=== PATIENT | male | born 1985 | race African-American/Black ===

== ENCOUNTER 2023-04-11 10:20 | Emergency (ER) | payer MEDICAID ==
[~2023-04-11] VITALS: Ht 185.4 cm; Wt 129.3 kg
[2023-04-11 10:38] VITALS: BP 126/87; PULSE 81; RESP 18; TEMP 97.8; O2SAT 98
[2023-04-11 13:30] VITALS: BP 126/87; PULSE 81; RESP 18; TEMP 97.8; O2SAT 98
== END 2023-04-11 13:30 | disposition left against medical advice (07) ==
LOC: MED 10:20
DX: R07.9 Chest pain, unspecified (principal); R42 Dizziness and giddiness; J31.2 Chronic pharyngitis; R03.0 Elevated blood-pressure reading, without diagnosis of hypertension
CPT/HCPCS: 71046; 99283

== ENCOUNTER 2023-06-27 12:44 | Emergency (ER) | payer MEDICAID ==
[~2023-06-27] VITALS: Ht 185.4 cm; Wt 122.0 kg
[2023-06-27 12:46] VITALS: BP 145/86; PULSE 82; RESP 16; TEMP 97.5; O2SAT 98
[2023-06-27 16:00] LABS: APPEARANCE,URINE CLEAR (CLEAR); BILIRUBIN,URINE NEGATIVE (NEGATIVE); BLOOD, URINE NEGATIVE (NEGATIVE); COLOR,URINE YELLOW (YELLOW); LEUKOCYTE ESTERASE ,URINE NEGATIVE (NEGATIVE); NITRITE, URINE NEGATIVE (NEGATIVE); PROTEIN,URINE NEGATIVE (NEGATIVE); UGLUCOSE NEGATIVE (NEGATIVE); UROBILINOGEN,URINE 0.2 EU/dL (0.2 - 1)
[2023-06-27] MEDS ORDERED: BENZ200C4 PO (16:20)
[2023-06-27] MEDS ORDERED: ALBU0.0912 IH (16:20)
[2023-06-27] MEDS ORDERED: BENZ-300 PO (16:20)
[2023-06-27 16:23] LABS: FLU A ANTIGEN negative (NEGATIVE); FLU B ANTIGEN NEGATIVE (NEGATIVE)
== END 2023-06-27 16:39 | disposition home or self-care (01) ==
LOC: MED 12:44
DX: J40 Bronchitis, not specified as acute or chronic (principal); J02.9 Acute pharyngitis, unspecified; R03.0 Elevated blood-pressure reading, without diagnosis of hypertension; N50.812 Left testicular pain; N43.3 Hydrocele, unspecified; Z20.822 Contact with and (suspected) exposure to COVID-19; Z79.899 Other long term (current) drug therapy
CPT/HCPCS: 71046; 76870; 81003; 86308; 87081; 87426; 87491; 87804; 99284; Q0092

== ENCOUNTER 2023-09-13 21:06 | Emergency (ER) | payer MEDICAID ==
[~2023-09-13] VITALS: Ht 185.4 cm; Wt 111.1 kg
[~2023-09-13 21:06] MED LIST: ALBU0.0912 IH; BENZ-300 PO; BENZ200C4 PO
[2023-09-13 21:53] VITALS: BP 140/90; PULSE 97; RESP 18; TEMP 97.6; O2SAT 99
[2023-09-13] MEDS: LIDOCAINE 5% 1 EA PATCH TP ONE (23:59)
[2023-09-14] MEDS: KETOROLAC 60 MG/2 ML VIAL IM ONE
[2023-09-14 00:21] LABS: APPEARANCE,URINE CLEAR (CLEAR); BILIRUBIN,URINE NEGATIVE (NEGATIVE); BLOOD, URINE NEGATIVE (NEGATIVE); COLOR,URINE YELLOW (YELLOW); LEUKOCYTE ESTERASE ,URINE NEGATIVE (NEGATIVE); NITRITE, URINE NEGATIVE (NEGATIVE); PROTEIN,URINE NEGATIVE (NEGATIVE); UGLUCOSE NEGATIVE (NEGATIVE); UROBILINOGEN,URINE 0.2 EU/dL (0.2 - 1)
[2023-09-14 01:16] LABS: BASOPHILS # (AUTO) 0.1 K/uL (0.00-0.22); BASOPHILS % (AUTO) 1.1 % (0.0-2.0); EOSINOPHILS # (AUTO) 0.2 K/uL (0-0.4); EOSINOPHILS % (AUTO) 2.3 % (0.0-4.0); HEMATOCRIT 39.9 % (36-52); HEMOGLOBIN 13.8 g/dL (12.0-18.0); LYMPHOCYTES # (AUTO) 2.4 K/uL (2.0-11.5); LYMPHOCYTES % (AUTO) 33.6 % (20.5-51.1); MEAN CORPUSCULAR HEMOGLOBIN 32 pg (27-31); MEAN CORPUSCULAR HGB CONC 35 g/dL (33-37); MEAN CORPUSCULAR VOLUME 91.8 fL (80-94); MONOCYTES # (AUTO) 0.7 K/uL (0.8-1.0); MONOCYTES % (AUTO) 9.5 % (1.7-9.3); NEUTROPHILS # (AUTO) 3.9 K/uL (1.8-7.7); NEUTROPHILS % (AUTO) 53.5 % (42.2-75.2); PLATELET COUNT (AUTO) 184 K/uL (140-450); RED BLOOD CELL COUNT(AUTO) 4.35 MIL/uL (4.20-6.10); RED CELL DISTRIBUTION WIDTH 12.5 % (11.6-13.7); WHITE BLOOD COUNT (AUTO) 7.3 K/uL (4.8-10.8)
[2023-09-14 01:28] LABS: ANION GAP 13.2 (8-16); CALCIUM 8.8 mg/dL (8.5-10.1); CARBON DIOXIDE 26.8 mmol/L (21-32); CREATININE 1.1 mg/dL (0.6-1.3)
[2023-09-14 03:32] LABS: BILIRUBIN,DIRECT 0.1 mg/dL (0.0-0.3); TOTAL BILIRUBIN 1.2 mg/dL (0.0-1.0); TOTAL PROTEIN, SERUM 7.4 g/dL (6.4-8.2)
[2023-09-14 03:54] VITALS: BP 140/90; PULSE 97; RESP 18; TEMP 97.6; O2SAT 99
== END 2023-09-14 03:54 | disposition home or self-care (01) ==
LOC: MED 21:06
DX: R10.9 Unspecified abdominal pain (principal); Z79.899 Other long term (current) drug therapy
CPT/HCPCS: 36415; 74176; 80048; 80076; 81003; 83690; 85025; 96372; 99285; J1885

== ENCOUNTER 2023-11-04 15:36 | Emergency (ER) | payer MEDICAID ==
[~2023-11-04] VITALS: Ht 185.4 cm; Wt 129.3 kg
[2023-11-04 16:06] VITALS: BP 128/82; PULSE 72; RESP 18; TEMP 97.3; O2SAT 99
[2023-11-04] MEDS ORDERED: IBUP-2213 PO (17:02)
[2023-11-04] MEDS ORDERED: PRED20TA5 PO (17:02)
[2023-11-04 17:11] VITALS: BP 128/82; PULSE 72; RESP 18; TEMP 97.3; O2SAT 98
== END 2023-11-04 17:11 | disposition home or self-care (01) ==
LOC: MED 15:36
DX: J02.9 Acute pharyngitis, unspecified (principal); R05.9 Cough, unspecified; R10.30 Lower abdominal pain, unspecified; F12.90 Cannabis use, unspecified, uncomplicated; Z72.89 Other problems related to lifestyle; Z79.899 Other long term (current) drug therapy
CPT/HCPCS: 99283